=== PATIENT | female | born 1965 | race American Indian/Alaskan Native ===

== ENCOUNTER 2020-12-07 08:00 | Outpatient (CLI) | payer OTHER | END 2020-12-07 08:30 | disposition home or self-care (01) | LOC: PPH VACUNA 08:00 | DX: Z23 Encounter for immunization (principal) ==

== ENCOUNTER 2023-08-23 04:44 | Emergency (ER) | payer OTHER ==
[~2023-08-23] VITALS: Ht 160 cm; Wt 69.9 kg
[2023-08-23] MEDS ORDERED: RAYOS5 MG (05:08)
[2023-08-23] MEDS ORDERED: MYCOPHENOLIC A360 MG (05:08)
[2023-08-23] MEDS ORDERED: ACETAMINOPHEN 500 MG GEL..CAP PO ONE (05:30)
[2023-08-23] MEDS ORDERED: DEXAMETHASONE SODIUM PHOSPHATE 4 MG/ML VIAL IM ONE (05:30)
[2023-08-23 06:05] LABS: HEMATOCRIT 41.4 % (36.0-45.00); HEMOGLOBIN 14.1 g/dL (12.0-15.00); MEAN CELL VOLUME 88.8 fL (80.00-100.00); MEAN CORPUSCULAR HEMOGLOBIN 30.3 pg (27.00-32.0); MEAN CORPUSCULAR HGB CONC 34.2 g/dl (32.0-36.0); PLATELET COUNT 137 K/uL (150-450); RED BLOOD COUNT 4.66 M/uL (4.00-6.00); RED CELL DISTRIBUTION WIDTH 13.1 % (11.5-14.5)
[2023-08-23 06:21] LABS: ALBUMIN 3.5 gm/dL (3.4-5.0); BILIRUBIN TOTAL 0.62 mg/dL (0.3-1.2); CALCIUM 9.3 mg/dL (8.5-10.1); CREATININE SERUM 0.69 mg/dL (0.55-1.02); GFR 87.08; GLOBULINA 3.2 G/DL (2.4-3.5); POTASSIUM 3.9 mEq/L (3.5-5.1); TOTAL PROTEIN 6.7 gm/dL (6.4-8.2)
[2023-08-23] MEDS ORDERED: TUSNEL LIQUID178 ML PO (07:20)
== END 2023-08-23 07:32 | disposition home or self-care (01) ==
LOC: ER 04:44
PROVIDERS: General Practice
DX: B34.9 Viral infection, unspecified (principal); Z94.0 Kidney transplant status; Z20.822 Contact with and (suspected) exposure to COVID-19

== ENCOUNTER 2024-01-28 12:16 | Emergency (ER) | payer OTHER ==
[~2024-01-28] VITALS: Ht 160 cm; Wt 66.7 kg
[~2024-01-28 12:16] MED LIST: MYCOPHENOLIC A360 MG; RAYOS5 MG; TUSNEL LIQUID178 ML PO
[2024-01-28] MEDS ORDERED: TACROLIMUS0.5 MG PO (12:53)
[2024-01-28] MEDS ORDERED: ACETAMINOPHEN 500 MG GEL..CAP PO ONE (13:15)
== END 2024-01-28 14:36 | disposition home or self-care (01) ==
LOC: ER 12:17
DX: M12.561 Traumatic arthropathy, right knee (principal); W18.31XA Fall on same level due to stepping on an object, initial encounter; Y93.89 Activity, other specified; Y92.89 Other specified places as the place of occurrence of the external cause; Z94.0 Kidney transplant status